=== PATIENT | female | born 1965 | race African-American/Black ===

== ENCOUNTER → 2017-12-25 | Outpatient (CLI) | payer OTHER | END | disposition home or self-care (01) | LOC: MAMMO 12:40 | DX: Z12.31 Encounter for screening mammogram for malignant neoplasm of breast (principal) | CPT/HCPCS: 77067 ==

== ENCOUNTER → 2019-01-01 | Outpatient (CLI) | payer OTHER ==
--- NOTE | 2019-01-01 09:04 | RAD ---
DATE: 01/01/2019. EXAM: DIGITAL SCREEN LT W/CAD HISTORY: Routine screening. History of right mastectomy. COMPARISON: Previous mammogram from 2018. This study was interpreted with the benefit of Computerized Aided Detection (CAD). FINDINGS: Breast Density: HETERO The breast parenchyma Is heterogeneously dense, which could reduce sensitivity of mammography. Breast parenchyma level C. Stable outer biopsy clip. Skin and nipple are within normal limits. Scattered benign-appearing calcifications. IMPRESSION: No mammographic evidence of malignancy. Stable mammogram. BI-RADS CATEGORY: 2 BENIGN FINDING(S) RECOMMENDED FOLLOW-UP: 12M 12 MONTH FOLLOW-UP PQRS compliance statement: Patient information was entered into a reminder system with a target due date for the next mammogram. Mammography is a sensitive method for finding small breast cancers, but it does not detect them all and is not a substitute for careful clinical examination. A negative mammogram does not negate a clinically suspicious finding and should not result in delay in biopsying a clinically suspicious abnormality. "Our facility is accredited by the [employer] Mammography [employer]."
== END | disposition home or self-care (01) ==
LOC: MAMMO 15:42
PROVIDERS: ATTEND Family Medicine
DX: Z12.31 Encounter for screening mammogram for malignant neoplasm of breast (principal); Z90.11 Acquired absence of right breast and nipple
CPT/HCPCS: 77067

== ENCOUNTER → 2020-01-07 | Outpatient (CLI) | payer BC ==
[~2020-01-07] MED LIST: NITROGLYCERIN PREMIX 250 ML IV ONE
--- NOTE | 2020-01-07 16:51 | RAD ---
EXAM: BILATERAL DIGITAL SCREENING MAMMOGRAPHY. HISTORY: Personal history of right breast cancer status post mastectomy. Left surveillance. TECHNIQUE: Bilateral full field digital images were obtained in CC and MLO projections. Computer-aided detection was applied. COMPARISON: 01/01/2019. COMPOSITION: D. The breasts are extremely dense, which lowers the sensitivity of mammography. FINDINGS: There are no suspicious masses, microcalcifications or architectural distortion. The parenchymal pattern is stable. A postbiopsy clip is noted laterally. Scattered and coarse calcifications are benign. BI-RADS CATEGORY 2: Benign. RECOMMENDATION: 1. Continue left surveillance mammography in one year. If mammography demonstrates dense breast tissue (heterogenously dense or extremely dense, category C or D), which could hide abnormalities, and if other risk factors for breast cancer have been identified, supplemental screening tests that may be suggested by the ordering physician may be of benefit. Dense breast tissue, in and of itself, is a relatively common condition. Therefore, this information is not provided to cause undue concern, but rather to raise awareness and to promote discussion with the referring physician regarding the presence of other risk factors, in addition to dense breast tissue. The results of this mammography examination is provided to the patient and referring physician. The patient should contact their referring physician if any questions or concerns exist regarding this report. PQRS compliance statement - Patient information was entered into a reminder system with a target due date for the next mammogram. "Our facility is accredited by the [employer]amm[employer]." Electronically signed by: Aleida Noel MD (01/07/2020 4:48 PM) [id number]
== END | disposition home or self-care (01) ==
LOC: MAMMO 11:23
PROVIDERS: ATTEND Family Medicine
DX: Z12.31 Encounter for screening mammogram for malignant neoplasm of breast (principal); N64.89 Other specified disorders of breast; Z90.11 Acquired absence of right breast and nipple; Z85.3 Personal history of malignant neoplasm of breast
CPT/HCPCS: 77067

== ENCOUNTER → 2021-01-06 | Outpatient (CLI) | payer BC, OTHER ==
--- NOTE | 2021-01-06 18:34 | RAD ---
DATE: 01/06/2021 EXAM: DIGITAL SCREEN LT W/CAD HISTORY: Screening. History of right breast cancer and mastectomy in 2011 COMPARISON: 01/17/2016, 12/25/2009, 01/01/2019, 01/07/2020 This study was interpreted with the benefit of Computerized Aided Detection (CAD). Breast Density: HETERO The breast parenchyma is heterogenously dense, which could reduce sensitivity of mammography. Breast parenchyma level C. FINDINGS: There is a biopsy clip in the outer left breast. Scattered benign calcifications are unchanged. No suspicious mass, suspicious calcifications, or architectural distortion. IMPRESSION: No evidence of malignancy. BI-RADS CATEGORY: 2 BENIGN FINDING(S) RECOMMENDED FOLLOW-UP: 12M 12 MONTH FOLLOW-UP PQRS compliance statement: Patient information was entered into a reminder system with a target due date for the next mammogram. Mammography is a sensitive method for finding small breast cancers, but it does not detect them all and is not a substitute for careful clinical examination. A negative mammogram does not negate a clinically suspicious finding and should not result in delay in biopsying a clinically suspicious abnormality. "Our facility is accredited by the [employer] Mammography [employer]."
== END ==
LOC: MAMMO 12:15
PROVIDERS: ATTEND Family Medicine
DX: Z12.31 Encounter for screening mammogram for malignant neoplasm of breast (principal)
CPT/HCPCS: 77067

== ENCOUNTER → 2021-08-12 | Day surgery (SDC) | payer OTHER ==
[~2021-08-12] VITALS: Ht 167.6 cm; Wt 95.0 kg
[~2021-08-12] MED LIST changes: +ATOR20TA58 PO; +HYDROmorphone 2 MG/ML INJ. IVP PRN; +IV RINGERS,LACTATED 1000ML 1,000 ML IV SCH; +METO100T5 PO; +MORPHINE SULFATE 2 MG/ML INJ. IVP PRN; -NITROGLYCERIN PREMIX 250 ML IV ONE; +PROCHLORPERAZINE 10 MG/2 ML VIAL. IVP PRN; +PROPOFOL 10 MG/ML (20ML) VIAL. IV ONE; +SPIR25TA5 PO; +fentaNYL PF VIAL 100 MCG/2 ML VIAL IVP PRN
[2021-08-12 08:51] VITALS: BP 180/98
[2021-08-12 10:03] VITALS: BP 140/87
--- NOTE | 2021-08-12 12:57 | CONS ---
DATE OF CONSULTATION: 08/12/2021 UPDATED HISTORY AND PHYSICAL REFERRING PHYSICIAN: Pedro Luna MD HISTORY OF PRESENT ILLNESS: A 55-year-old female whose past medical history is significant for hyperlipidemia, hypertension, family history of colon cancer with her brother, seen for interval colon exam. Bowel habits are regular without diarrhea or constipation. There has been no melena and/or hematochezia. Weight and appetite are stable. She is otherwise without additional complaints. PAST MEDICAL HISTORY: Breast cancer, hypertension, hyperlipidemia. ALLERGIES: None. MEDICATIONS: Include atorvastatin, metoprolol, spironolactone. FAMILY HISTORY: Significant for colon cancer with brother, colon polyp with mother, ovarian cancer with her mother. SOCIAL HISTORY: Nonsmoker, social drinker. PAST SURGICAL HISTORY: Significant for hysterectomy and breast cancer resection. REVIEW OF SYSTEMS: Per records. PHYSICAL EXAMINATION: GENERAL: Reveals a well-nourished, well-developed female who is alert, cooperative, in no acute distress. VITAL SIGNS: Temperature is 97.1, pulse 77, respiratory rate 17. LUNGS: Clear. CARDIOVASCULAR: Reveals an S1, S2, without S3, S4 or appreciable murmur. ABDOMEN: Reveals a soft abdomen, normal bowel sounds, without appreciable hepatosplenomegaly with surgical incisions. EXTREMITIES: Reveals no cyanosis, clubbing or edema. IMPRESSION: Family history of colon cancer. Surveillance exam is recommended at this time. Risks and benefits of procedure including risk of hemorrhage and perforation requiring operation were discussed. The patient is willing to proceed at this time. I would like to thank Dr. Luna for allowing us to consult and participate in the patient's care. NNAMDI/DASHAWN DR: Leon TID: [id number] CC: Pedro Luna MD
--- NOTE | 2021-08-15 17:08 | PATHOLOGY ---
[facility] Accession Number: [id number] . 01 Material submitted: . sigmoid colon - SIGMOID COLON POLYP . 01 Clinical history: . CRC SCREENING . 02 Diagnosis: Colon biopsy, sigmoid colon polyp: - Tubular adenoma. . ([facility]:mm; 08/15/2021) [facility] 08/15/2021 1204 Local . 02 Comment: There is no high grade dysplasia or evidence of malignancy. . ([facility]:mml; 08/15/2021) . 02 Electronically signed: . Dimitri Gonzalez MD, Pathologist NPI- [id number] . 01 Gross description: . Received in formalin labeled "Cecil, Samreen, sigmoid polyp further designated by the req as sigmoid colon polyp " is a fragment of eng[place]-brown soft tissue measuring 0.9 x 0.6 x 0.3 cm. The specimen is submitted entirely in A1. ([facility]; 08/13/2021) GZA/GZA 08/13/2021 1324 Local . 02 Pathologist provided ICD-10: D12.5 . 02 CPT . 404607 Specimen Comment: A courtesy copy of this report has been sent to [phone], [phone] Specimen Comment: [id number] Specimen Comment: Report sent to / DR PRUITT Specimen Comment: A duplicate report has been generated due to demographic updates. Performed at: [facility] [address], [place] [id number] MD Miguel Burns MD Phone: [phone] Performed at: [facility] [address], [place] [id number] MD Dimitri Gonzalez MD Phone: [phone]
== END | disposition home or self-care (01) ==
LOC: ENDOS 08:25
PROVIDERS: ATTEND Internal Medicine Gastroenterology
DX: Z12.11 Encounter for screening for malignant neoplasm of colon (principal); K64.0 First degree hemorrhoids; D12.5 Benign neoplasm of sigmoid colon; K63.89 Other specified diseases of intestine; I10 Essential (primary) hypertension; E78.00 Pure hypercholesterolemia, unspecified; Z85.3 Personal history of malignant neoplasm of breast; Z80.0 Family history of malignant neoplasm of digestive organs; Z90.710 Acquired absence of both cervix and uterus; Z98.890 Other specified postprocedural states; Z79.899 Other long term (current) drug therapy; Z87.891 Personal history of nicotine dependence; Z72.89 Other problems related to lifestyle; Z88.8 Allergy status to other drugs, medicaments and biological substances
CPT/HCPCS: 45385; J2704; 88305